=== PATIENT | female | born 1985 | race Caucasian/White ===

== ENCOUNTER 2017-07-15 17:15 | Emergency (ER) | payer MEDICAID ==
[~2017-07-15] VITALS: Ht 165.1 cm; Wt 113.5 kg
[~2017-07-15 17:15] MED LIST: NOCURR
[2017-07-15] MEDS ORDERED: KETOROLAC TROMETHAMINE 30 MG/ML VIAL IM ONE (19:00)
[2017-07-15] MEDS ORDERED: KETOROLAC TROMETHAMINE 30 MG/ML VIAL IVP ONE (19:15)
[2017-07-15 19:55] VITALS: BP 121/67
== END 2017-07-15 19:58 | disposition home or self-care (01) ==
LOC: EMS 17:16
DX: R07.89 Other chest pain (principal)
CPT/HCPCS: 93005; 96374; 99284; J1885